=== PATIENT | male | born 1965 | race Caucasian/White ===

== ENCOUNTER 2017-03-02 20:56 | Emergency (ER) | payer SELFPAY ==
[~2017-03-02] VITALS: Ht 185.4 cm; Wt 130.4 kg
[~2017-03-02 20:56] MED LIST: ALBU8I INH; MEDR4PAK PO; NAPR-576 PO; VENTAER INH; ZITHTAB PO; ZOFR4TAB PO
[2017-03-02 20:59] VITALS: BP 168/85; PULSE 79; RESP 16; TEMP 97.7; O2SAT 96
[2017-03-02] MEDS ORDERED: ALEV220T14 PO (21:10)
[2017-03-02] MEDS ORDERED: ERYTOIN10 RIGHT EYE (21:22)
--- NOTE | 2017-03-02 21:22 | PD ---
HPI Chief Complaint: Eye Problems/Injury Time Seen by Provider: 21:12 Travel History International Travel<30 days: No Contact w/Intl Traveler<30days: No Traveled to known affect area: No History of Present Illness HPI 51-year-old male complains of pain swelling on the upper eyelid. Patient states the symptoms started yesterday. Patient states that he has mild pain on the limited also. Patient denies any visual change. Patient denies any eye discharge. Patient states the pain is sharp pain most severely on the upper eyelid. Patient denies any pain radiation. Patient denies any injury to the eye. On a scale of 1-10 the pain is a 5. PFSH Past Medical History Hx Anticoagulant Therapy: No Arthritis: Yes Asthma: Yes Atrial Fibrillation: Yes Blood Disorders: No Heart Rhythm Problems: Yes Cancer: No Cardiac Catheterization: Yes Cardiovascular Problems: Yes (A-Fib) High Cholesterol: Yes Chemotherapy: No Chest Pain: Yes Congestive Heart Failure: No COPD: No Cerebrovascular Accident: No Diabetes: No Diminished Hearing: No Endocrine: No Gastrointestinal Disorders: No Genitourinary: No Hypertension: Yes (STATES FAMILY HISTORY) Immune Disorder: No Implanted Vascular Access Dvce: No Musculoskeletal: Yes (RUPTURED DISK- BACK) Neurologic: No Psychiatric: No Reproductive: No Respiratory: Yes (P.E., Asthma) Immunizations Current: Yes Sleep Apnea: No Thyroid Disease: No Tetanus Vaccination: < 5 Years Influenza Vaccination: No ?: Not Past Surgical History Hysterectomy: No Other Surgery: Yes (CARDIAC CATH) Family History Family Hypercholesterolemia: No Social History Alcohol Use: No Tobacco Use: No (quit 2 years) Substance Use: No Allergies-Medications (Allergen,Severity, Reaction): Coded Allergies: hydromorphone (Verified Allergy, Severe, TORTION OF MUSCLES, 03/02/17) morphine (Verified Allergy, Severe, TORTION OF MUSCLES, 03/02/17) Reported Meds & Prescriptions Reported Meds & Active Scripts Active Reported Aleve Arthritis (Naproxen Sodium) 220 Mg Tab 220 Mg PO BID Review of Systems General / Constitutional: No: Fever Eyes: Positive: Pain, No: Visual changes HENT: No: Headaches Cardiovascular: No: Chest Pain or Discomfort Respiratory: No: Shortness of Breath Gastrointestinal: No: Abdominal Pain Genitourinary: No: Dysuria Musculoskeletal: No: Pain Skin: No Rash Neurologic: No: Weakness Psychiatric: No: Depression Endocrine: No: Polydipsia Hematologic/Lymphatic: No: Easy Bruising Physical Exam Narrative GENERAL: Well-nourished, well-developed patient. SKIN: Focused skin assessment warm/dry. HEAD: Normocephalic. EYES: No scleral icterus. No injection or drainage. Patient has swelling and tenderness of the right upper eyelid. Pupils 2 mm equal reactive. No discharge on the eyelid. No crusted material on the upper eyelid on the margin area. NECK: Supple, trachea midline. No JVD or lymphadenopathy. CARDIOVASCULAR: Regular rate and rhythm without murmurs, gallops, or rubs. RESPIRATORY: Breath sounds equal bilaterally. No accessory muscle use. GASTROINTESTINAL: Abdomen soft, non-tender, nondistended. MUSCULOSKELETAL: No cyanosis, or edema. BACK: Nontender without obvious deformity. No CVA tenderness. Data Data Last Documented VS Vital Signs Date Time Temp Pulse Resp B/P (MAP) Pulse Ox O2 Delivery O2 Flow Rate FiO2 03/02/17 20:59 97.7 79 16 168/85 (112) 96 MDM Medical Decision Making Medical Screen Exam Complete: Yes Emergency Medical Condition: Yes Differential Diagnosis Differential diagnosis including stye, blepharitis. Narrative Course 51-year-old male with pain and swelling right upper eyelid. Diagnosis Primary Impression: Hordeolum of right eye Qualified Codes: H00.011 - Hordeolum externum right upper eyelid Additional Instructions: Warm compresses. Erythromycin ointment as directed. Follow-up with beef trimmer. Med/Other Pt SpecificInfo: Prescription(s) given Scripts Erythromycin Opth Oint (Erythromycin Opth Oint) 5 Mg/Gm Oint 1 APPLIC RIGHT EYE BID for Infection, #1 TUBE 0 Refills Prov: Cayetano Nelson MD 03/02/17 Disposition: 01 DISCHARGE HOME Condition: Stable Cayetano Nelson MD Mar 02, 2017 21:22
== END 2017-03-02 21:36 | disposition home or self-care (01) ==
LOC: PHEFT 20:56
DX: H00.011 Hordeolum externum right upper eyelid (principal)
CPT/HCPCS: 99283

== ENCOUNTER 2017-03-11 22:05 | Observation (INO) | payer SELFPAY ==
[~2017-03-11 22:05] MED LIST changes: -ALBU8I INH; +ALEV220T14 PO; +ERYTOIN10 RIGHT EYE; -MEDR4PAK PO; -NAPR-576 PO; -VENTAER INH; -ZITHTAB PO; -ZOFR4TAB PO
[2017-03-11 22:59] VITALS: BP 137/79; PULSE 70; RESP 17; TEMP 98; O2SAT 98
[2017-03-11 23:25] VITALS: PULSE 71
[2017-03-12 00:30] VITALS: PULSE 70
[2017-03-12] MEDS ORDERED: KETOROLAC TROMETHAMINE 30 MG/ML (IVP) VIAL IV PUSH SCH (01:30)
[2017-03-12 04:19] VITALS: BP 111/78; PULSE 65; RESP 16; TEMP 98.9; O2SAT 95
[2017-03-12 04:30] VITALS: PULSE 68
[2017-03-12] MEDS ORDERED: ACETAMINOPHEN 500 MG CPLT PO PRN (07:45)
[2017-03-12] MEDS ORDERED: NITROGLYCERIN 0.4 MG SL 25 TABS/BTL SL PRN (07:45)
[2017-03-12] MEDS ORDERED: SODIUM CHLORIDE 0.9% FLUSH 10 ML FLUSH IV FLUSH PRN (07:45)
[2017-03-12] MEDS ORDERED: ONDANSETRON HCL 4 MG/2 ML VIAL IV PUSH PRN (07:45)
--- NOTE | 2017-03-12 08:26 | HHI.HP ---
HPI Primary Care Physician No Primary Care Physician Chief Complaint Chest pain History of Present Illness 51-year-old male with known coronary artery disease, paroxysmal A. fib, and past pulmonary embolism presents to emergency room for further evaluation chest pain. Onset yesterday evening approx. 6pm. Character as a quick, sharp, "hard pain." Location substernal. Severe in severity. No radiation initially but reports in the middle of night discomfort radiation left lower chest for a short amount of time. Duration constant waxing and waning in intensity for at least 8 hours. No known resuscitating factors. Relieving factors Toradol provided in digital analytics manager hours, reported pain nearly gone after approx. 30 minutes after Toradol given. No particular motion, position, or deep breathing makes pain better or worse. Currently chest pain free. Currently does not have a PCP. Endorses never followed up with Dr. Bullock after catheterization due to lack of insurance. Reporting insurance will begin March 23, 2017 and plans on establishing with a PCP. Review of Systems General: No fatigue,weakness, fever, chills, or recent illness change in appetite. Has been a his general state of health. HEENT: No HERMAN, no vision changes, no nasal congestion or drainage, no dysphasia CV: As stated above. No current chest discomfort. Reports feelings of "a fib" 1- 2x weekly. No dizziness. RESP: No SOB, cough, wheeze, sputum production, or recent URI. Slight chest congestion x2 days. GI: No nausea, vomiting, bowel changes, diarrhea, constipation, pain, distention , melena, or blood in the stool. 50-60 pound weight gain after stopping smoking. : No dysuria, urgency, frequency EXT: Increase in bilateral lower leg dependent edema past couple months. no paraesthesias MS: No discomfort or change in ROM, no recent injury or traumas. NEURO: No difficulty with balance, LOC, motor/sensory deficits PSYCH: No anxiety, depression SKIN: No rashes, no concerning lesions Past Family Social History Allergies: Coded Allergies: hydromorphone (Verified Allergy, Severe, TORTION OF MUSCLES, 03/11/17) morphine (Verified Allergy, Severe, TORTION OF MUSCLES, 03/11/17) Past Medical History Coronary artery disease, paroxysmal A. fib, pulmonary embolism (2004)-reports cause of PE never identified, ruptured lumbar disk Past Surgical History None Reported Medications Reported Meds & Active Scripts Active No Active Prescriptions or Reported Medications Active Ordered Medications Current Medications Medications (Trade) Dose Ordered Sig/[place] Route Start Time Stop Time Status Last Admin (NS Flush) 2 ml UNSCH PRN IV FLUSH 03/12/17 07:45 (NS Flush) 2 ml BID IV FLUSH 03/12/17 09:00 (Tylenol) 500 mg Q4H PRN PO 03/12/17 07:45 (Zofran Inj) 4 mg Q6H PRN IV PUSH 03/12/17 07:45 (Nitrostat Sl) 0.4 mg Q5M PRN SL 03/12/17 07:45 (Aspirin) 325 mg DAILY PO 03/12/17 09:00 Family History Reports strong family history on maternal side of strokes, including his mother , grandmother, and x5 uncles. Social History Known coronary artery disease. No known diabetes, hypertension, or hyperlipidemia. Former smoker 50 pack year. Quit smoking in 2014. Endorses sedentary lifestyle. Works in [employer]. Past cardiac testing 05/14/2015 Lexiscan-within normal limits. No stress-induced ischemia. Normal wall motion. EF 69%. 02/04/2012 Cardiac catheterization (Dr. Bullock)-Conclusions: 1. Mild non- obstructive coronary artery disease of mid-left anterior descending with myocardial bridging. 2. Normal left ventricular systolic function. 02/03/2012 Lexiscan-mild reversibility anterior wall could represent focal area of ischemia. EF 60% Physical Exam Vital Signs Vital Signs Date Time Temp Pulse Resp B/P (MAP) Pulse Ox O2 Delivery O2 Flow Rate FiO2 03/12/17 04:30 68 03/12/17 04:19 98.9 65 16 111/78 (89) 95 03/12/17 02:47 14 03/12/17 00:30 70 03/11/17 23:25 71 03/11/17 22:59 98.0 70 17 137/79 (98) 98 Physical Exam GENERAL: Alert WN, WD, NAD, pleasant, obese male who appears older than stated age. HEAD: NC, AT EYES: Sclera clear, conjunctiva without injection, pupils equal and round ENT: Mucous membranes pink and moist, no nasal discharge or bleeding NECK: Supple, no masses, trachea midline CV: RRR, without murmur, rub, gallop, no JVD, S1-S2 no S3-S4. No carotid bruits. Chest wall nontender with palpation. RESP: Clear lungs throughout bilateral, no crackles, wheeze, rhonchi, symmetrical chest rise, nonlabored, able to speak in full sentences ABD: Soft, NT, ND, no masses, positive bowel tones, obese BACK: No scoliosis EXT: Pulses +24, trace pedal edema MS: Normal tone 4 extremities, nontender, no obvious deformities, full range of motion NEURO: CN II through CN XII grossly intact, motor strength 5/5 PSYCH: A+O 3, pleasant affect, appropriate speech, mood, insight and judgment SKIN: Normal turgor, normal texture, no lesions, no rashes, brisk cap refill, even hair distribution, tattoos Laboratory Initial laboratory results completed [facility]- CBC unremarkable. Creatinine 1.00, random glucose 118 otherwise CMP unremarkable. Calcium 8.6, magnesium 2.4. BMP 14. Troponins 3 less than 0.02. Laboratory Tests Test 03/11/17 22:49 03/12/17 01:30 Troponin I LESS THAN 0.02 LESS THAN 0.02 Imaging Chest xray read by radiologist as no acute cardiopulmonary process. Course EKG Normal sinus rhythm, normal axis, no ST or T-segment changes Caprini VTE Risk Assessment Caprini VTE Risk Assessment: No/Low Risk (score <= 1) Caprini Risk Assessment Model Point Value = 1 Point Value = 2 Point Value = 3 Point Value = 5 Age 41-60 Minor surgery BMI > 25 kg/m2 Swollen legs Varicose veins or History of unexplained or recurrent spontaneous Oral contraceptives or hormone replacement Sepsis (< 1 month) Serious lung disease, including pneumonia (< 1 month) Abnormal pulmonary function Acute myocardial infarction Congestive heart failure (< 1 month) History of inflammatory bowel disease Medical patient at bed rest Age 61-74 Arthroscopic surgery Major open surgery (> 45 min) Laparoscopic surgery (> 45 min) Malignancy Confined to bed (> 72 hours) Immobilizing plaster cast Central venous access Age >= 75 History of VTE Family history of VTE Factor V Leiden Prothrombin [id number] Lupus anticoagulant Anticardiolipin antibodies Elevated serum homocysteine Heparin-induced thrombocytopenia Other congenital or acquired thrombophilia Stroke (< 1 month) Elective arthroplasty Hip, pelvis, or leg fracture Acute spinal cord injury (< 1 month) Prophylaxis Regimen Total Risk Factor Score Risk Level Prophylaxis Regimen 0-1 Low Early ambulation 2 Moderate Order ONE of the following: *Sequential Compression Device (SCD) *Heparin 5000 units SQ BID 3-4 Higher Order ONE of the following medications: *Heparin 5000 units SQ TID *Enoxaparin/Lovenox 40 mg SQ daily (WT < 150 kg, CrCl > 30 mL/min) *Enoxaparin/Lovenox 30 mg SQ daily (WT < 150 kg, CrCl > 10-29 mL/min) *Enoxaparin/Lovenox 30 mg SQ BID (WT < 150 kg, CrCl > 30 mL/min) AND/OR *Sequential Compression Device (SCD) 5 or more Highest Order ONE of the following medications: *Heparin 5000 units SQ TID (Preferred with Epidurals) *Enoxaparin/Lovenox 40 mg SQ daily (WT < 150 kg, CrCl > 30 mL/min) *Enoxaparin/Lovenox 30 mg SQ daily (WT < 150 kg, CrCl > 10-29 mL/min) *Enoxaparin/Lovenox 30 mg SQ BID (WT < 150 kg, CrCl > 30 mL/min) AND *Sequential Compression Device (SCD) Assessment and Plan Assessment and Plan #1 Atypical chest pain-admitted to chest pain center. Ruled out with 3 sets of EKGs, cardiac enzymes, and monitored overnight. Will be seen and evaluated by Dr. Chele Banks. Discussed likelihood of completing a Lexiscan this morning. If unremarkable, plans to discharge to follow-up with PCP. Patient agreeable plan of care. Strongly encouraged and stressed the importance of establishing with a primary care provider. Education provided statin benefits with known coronary artery disease. Increase daily activity and weight loss encouraged. Mary Chavez Mar 12, 2017 08:26
[2017-03-12 08:32] VITALS: BP 119/63; PULSE 68; RESP 20; TEMP 95.9; O2SAT 95
[2017-03-12] MEDS ORDERED: ASPIRIN 325 MG TAB PO SCH (09:00)
[2017-03-12] MEDS ORDERED: SODIUM CHLORIDE 0.9% FLUSH 10 ML FLUSH IV FLUSH SCH (09:00)
[2017-03-12] MEDS ORDERED: REGADENOSON INJ 0.4 MG/5 ML SYR ONE (09:38)
--- NOTE | 2017-03-12 10:49 | TR ---
Date Performed: 03/12/2017 Time Performed: 09:53:47 DOCTOR: Chele Banks DRUG LIST: CLINICAL HISTORY: REASON FOR TEST: Angina REASON FOR ENDING: OBSERVATION: CONCLUSION: Lexiscan stress test was performed under standard four minute protocol. Radionuclid e was injected one minute prior to ending the test. No electrocardiographic abormalities were present to suggest ischemia. Nuclear imaging and interpretation are pending. COMMENTS:
--- NOTE | 2017-03-12 11:07 | RADRPT ---
EXAM DATE/TIME: 03/12/2017 09:35 CORRECTION Corrected on: March 17, 2017; fixed pain location and surgical history [facility] COMPARISON: No previous studies available for comparison. INDICATIONS : Angina. DOSE: 11 mCi Tc99m Myoview at stress. 35 mCi Tc99m Myoview at rest. 0.4 mg Lexiscan STRESS SYMPTOMS: Shortness of breath, chest pressure, facial flush, dizziness. EJECTION FRACTION: 62% MEDICAL HISTORY : Hypercholesterolemia. Hypertension. Atrial Fibrillation SURGICAL HISTORY : none ENCOUNTER: Initial ACUITY: 1 day PAIN SCALE: 2/10 LOCATION: Bilateral chest TECHNIQUE: The patient underwent pharmacologic stress with infusion of prescribed dose. Continuous ECG tracing was monitored during stress. Gated SPECT imaging was performed after stress and conventional SPECT i maging was performed at rest. The examination was performed on a SPECT/CT scanner, both attenuation and non-corrected datasets were reviewed. FINDINGS: DISTRIBUTION: The maximum perfused segment at stress is in the septal wall. PERFUSION STUDY: The pattern of perfusion at stress is within normal limits. GATED STUDY: There is intact wall motion and thickening without hypokinetic or dyskinetic segments. CONCLUSION: 1. No stress-induced perfusion abnormality. 2. No focal wall motion abnormality. EF of 62%. RISK CATEGORY: Low (<1% Annual Mortality Rate) Michi Gusman MD on March 12, 2017 at 11:04 Board Certified Radiologist. This report was verified electronically.
--- NOTE | 2017-03-12 11:35 | HHI.DCPOC ---
Discharge Care Plan Diagnosis: (1) Atypical chest pain (2) History of coronary artery disease (3) History of atrial fibrillation Goals to Promote Your Health * To prevent worsening of your condition and complications * To maintain your health at the optimal level Directions to Meet Your Goals Take your medications as prescribed Follow your dietary instruction Follow activity as directed Keep your appointments as scheduled Take your immunizations and boosters as scheduled If your symptoms worsen call your PCP, if no PCP go to Urgent Care Center or Emergency Room Smoking is Dangerous to Your Health. Avoid second hand smoke Call the 24-hour hour crisis hotline for domestic abuse at Mary Chavez Mar 12, 2017 11:35
--- NOTE | 2017-03-12 13:26 | EKG ---
Date Performed: 03/11/2017 Time Performed: 23:04:52 PTAGE: 51 years EKG: Sinus rhythm POSSIBLE LEFT ATRIAL ENLARGEMENT BORDERLINE ECG NO PREVIOUS TRACING Since previous tracing, no significant change noted DOCTOR: Chele Banks Interpretating Date/Time 03/12/2017 13:25:12
--- NOTE | 2017-03-12 13:26 | EKG ---
Date Performed: 03/12/2017 Time Performed: 01:52:59 PTAGE: 51 years EKG: Sinus rhythm NORMAL ECG PREVIOUS TRACING : 03/11/2017 23.04 Since previous tracing, no significant change noted DOCTOR: Chele Banks Interpretating Date/Time 03/12/2017 13:24:39
== END 2017-03-12 13:36 | disposition home or self-care (01) ==
LOC: NEDDLT 22:05 → NEPHCDU 22:15
PROVIDERS: ADMIT Internal Medicine Cardiovascular Disease; ATTEND Internal Medicine Cardiovascular Disease
DX: R07.89 Other chest pain (principal); R06.02 Shortness of breath; R42 Dizziness and giddiness; I25.119 Atherosclerotic heart disease of native coronary artery with unspecified angina pectoris; I48.0 Paroxysmal atrial fibrillation; I10 Essential (primary) hypertension; E78.00 Pure hypercholesterolemia, unspecified; Z86.711 Personal history of pulmonary embolism; Z87.891 Personal history of nicotine dependence
CPT/HCPCS: 71010; 78452; 80048; 82550; 83735; 83880; 84484; 85025; 85610; 85730; 93005; 93017; 99285; A9502; G0378; J1885; J2785